=== PATIENT | female | born 1960 | race Caucasian/White ===

== ENCOUNTER 2019-08-06 14:19 | Inpatient (IN) | payer OTHER, MEDICAID ==
[~2019-08-06] VITALS: Ht 160 cm; Wt 84.5 kg
[2019-08-06 14:28] VITALS: BP 129/79
[2019-08-06] MEDS ORDERED: BUPROPION XL300 MG PO (14:34)
[2019-08-06] MEDS ORDERED: BACLOFEN 10MG T10 MG PO (14:34)
[2019-08-06] MEDS ORDERED: CARVEDILOL6.25 M1 PO (14:34)
[2019-08-06] MEDS ORDERED: LIPITOR80 MG PO (14:34)
[2019-08-06] MEDS ORDERED: AMIODARONE HCL400 MG PO (14:34)
[2019-08-06] MEDS ORDERED: FENTANYL1 EAC4 TRANSDERM (14:35)
[2019-08-06] MEDS ORDERED: DULOXETINE HCL20 MG PO (14:35)
[2019-08-06] MEDS ORDERED: FUROSEMIDE 20 M20 MG PO (14:35)
[2019-08-06] MEDS ORDERED: NEURONTIN300 MG PO (14:35)
[2019-08-06] MEDS ORDERED: LORAZEPAM 1 MG T1 MG PO (14:36)
[2019-08-06 15:10] LABS: ABSOLUTE BASOPHILS 0.1 thou/uL (0.0-0.2); ABSOLUTE EOSINOPHILS 0.1 thou/uL (0.0-0.7); ABSOLUTE LYMPHOCYTES 1.7 thou/uL (0.8-5.3); ABSOLUTE MONOCYTES 0.9 thou/uL (0.0-1.2); ABSOLUTE NEUTROPHILS 9.4 thou/uL (1.6-8.1); BASOPHILS 0.5 %; EOSINOPHILS 0.5 %; HEMATOCRIT 39.3 % (37.0-47.0); HEMOGLOBIN 13.2 gm/dL (12.0-15.0); LYMPHOCYTES 14.1 %; MCH 30.2 pg (26.0-34.0); MCHC 33.7 g/dL (28.0-37.0); MCV 89.8 fL (80.0-100.0); MONOCYTES 7.7 %; MPV 7.8 fl. (7.2-11.1); NUCLEATED RBCS 0 /100WBC; PLATELET COUNT* 277 thou/uL (150-400); POLYS 77.2 %; RBC 4.38 mil/uL (4.20-5.00); RDW-CV 14.2 % (10.5-14.5); WBC 12.2 thou/uL (4.0-11.0)
[2019-08-06 15:23] LABS: CALCIUM 8.8 mg/dL (8.5-10.1); POTASSIUM 3.9 mmol/L (3.5-5.1)
[2019-08-06 15:26] LABS: ACETAMINOPHEN < 2 ug/mL (10-30); ALCOHOL < 10 mg/dL (<10); SALICYLATE < 2.8 mg/dL (2.8-20.0)
[2019-08-06 15:27] LABS: ALBUMIN 2.7 g/dL (3.4-5.0); TOTAL BILIRUBIN 0.5 mg/dL (<0.1-1.0); TOTAL PROTEIN 8.1 g/dL (6.4-8.2)
[2019-08-06 15:57] LABS: URINE BILIRUBIN NEGATIVE (Negative); URINE BLOOD TRACE (Negative); URINE CLARITY SL CLOUDY; URINE COLOR YELLOW; URINE GLUCOSE-RANDOM NEGATIVE (Negative); URINE KETONES NEGATIVE (Negative); URINE LEUKOCYTES-REFLEX 1+ (Negative); URINE PROTEIN 1+ (Negative); URINE SPECIFIC GRAVITY 1.015 (1.005-1.030); URINE UROBILINOGEN 0.2 E.U./dl (0.2-1.0)
[2019-08-06 16:02] LABS: URINE NITRITE-REFLEX POSITIVE (Negative)
[2019-08-06 16:06] LABS: AMP/METHAMP Negative (Negative); BARBITURATES POSITIVE (Negative); BENZODIAZEPINES Negative (Negative); COCAINE Negative (Negative); METHADONE Negative (Negative); OPIATES POSITIVE (Negative); PCP Negative (Negative); THC Negative (Negative)
[2019-08-06 16:09] LABS: BACTERIA-REFLEX >30 Many /HPF (None Seen); CASTS None Seen /LPF (None Seen); CRYSTALS None Seen /LPF (None Seen); SQUAMOUS 0-3 Few /LPF (0-3); URINE RBC 0-2 Rare /HPF (0-2)
[2019-08-06 16:10] LABS: MUCUS 0-3 Light strn/LPF (None Seen); URINE WBC-REFLEX >25 Many /HPF (0-5)
--- NOTE | 2019-08-06 16:26 | NUR ---
PT HAS FENTNYL PATCH ON LEFT CHEST
[2019-08-06 21:04] VITALS: BP 109/55
--- NOTE | 2019-08-06 21:04 | NUR ---
REPORT GIVEN TO ROOM 223 PT TAKEN UP TO FLOOR ON FULL ROASTMASTER.
[2019-08-06 21:30] VITALS: BP 110/74
[2019-08-06] MEDS ORDERED: FLOMAX0.4 MG PO (21:36)
[2019-08-06] MEDS ORDERED: SUPER THERAVIT1 EACH PO (21:37)
[2019-08-06] MEDS ORDERED: B COMPLEX1 EACH PO (21:38)
[2019-08-06] MEDS ORDERED: TYLENOL325 MG PO (21:39)
[2019-08-06] MEDS ORDERED: BANOPHEN25 M1 PO (21:39)
[2019-08-06] MEDS ORDERED: BUTALBIT-ACETA1 EACH PO (21:40)
[2019-08-06] MEDS ORDERED: TUMS PO (21:41)
[2019-08-06] MEDS ORDERED: MILK OF MA400 MG/5 M PO (21:43)
[2019-08-06] MEDS ORDERED: SEROQUEL 25 MG25 MG PO (21:44)
[2019-08-06] MEDS ORDERED: PERCOCET 10-321 EAC1 PO (21:45)
[2019-08-06] MEDS ORDERED: MIRALAX119 GM PO (21:46)
[2019-08-06] MEDS ORDERED: SENNA PLUS TAB1 EACH PO (21:47)
[2019-08-06] MEDS ORDERED: OMEPRAZOLE 20 M20 M1 PO ×2 (21:53)
[2019-08-06] MEDS ORDERED: CYMBALTA30 MG PO (21:55)
[2019-08-06] MEDS ORDERED: ATIVAN1 M1 PO (21:58)
[2019-08-06] MEDS ORDERED: GABAPENTIN600 M1 PO (21:58)
[2019-08-06] MEDS ORDERED: KLOR-CON 10 ER10 MEQ PO (22:00)
[2019-08-07] VITALS: BP 128/73
[2019-08-07 04:00] VITALS: BP 107/59
--- NOTE | 2019-08-07 05:04 | NUR ---
RECEIVED REPORT AND ASSUMED CARE OF PATIENT FROM ER. PATIENT ALERT, ORIENTED TO SELF AND SITUATION. PATIENT'S SON STATES HER ORIENTATION STATUS VARIES FROM ORIENTED X4 TO CONFUSED, D/T PREVIOUS CVA. PATIENT C/O PAIN, PARTIALLY RELIEVED WITH PO MEDICATION AND RELAXATION TECHNIQUES. PATIENT REPOSITIONED Q2H TO MAINTAIN SKIN INTEGRITY. INCONTINENCE CHECKS AND ALESSANDRO CARE PROVIDED WITH REPOSITIONING. CALL LIGHT WITHIN REACH.
[2019-08-07 08:00] VITALS: BP 126/51
--- NOTE | 2019-08-07 13:00 | NUR ---
assumed pt care report received from nurse. pt is aox3 forgetful. left side paralysis due to stroke hx. left side is stiff. complains of pain in right shoulder. fentanyl patch applied. iv rocephin given. pt worked with physical therapy. pt was moved out of bed to chair with physical therapist help. pt was moved back in bed per nursing staff for bedpan used at lunch time. q2turn. skin intact. tracing sinus rythm on environmental monitoring technician. no accucheck. will continue to monitor pt
[2019-08-07 13:35] VITALS: BP 104/38
--- NOTE | 2019-08-07 14:32 | NUR ---
MET WITH PT TO DISCUSS HOME SITUATION/DC PLANNING. PT'S SPOUSE IN ROOM THIS AFTERNOON. PT IS LTC RESIDENT AT [facility], PLAN IS FOR HER TO RETURN THERE AT [place]. PT AND SPOUSE STATE SHE HAS BEEN IN FACILITY SINCE LAST NOV AFTER A CVA, WAS AT [facility] AND TRANSFERRED TO [facility] RECENTLY FOR LTC. CALLED AND UPDATED [facility], THEY WILL ACCEPT BACK AT [place]. FAXED UPDATE. WILL FOLLOW
[2019-08-07 16:03] VITALS: BP 96/42
--- NOTE | 2019-08-07 16:52 | EKG ---
[place] [address] ELECTROCARDIOGRAM REPORT Name: ADIEL MULLEN Room: [address] ADM IN .R.#: [id number] Admission: 08/06/19 Attend Phys: Yannick Darby Discharge: Date of : 60 Report #: [id number] THIS REPORT FOR: //name// [facility] ED Test Date: 2019-08-06 Test Time: 15:36:57 Pat Name: ADIEL SHANTASANJUANATAMMIE Department: Room: [facility] Gender: F Mainframe Architect: SAVANA : 1960 Requested By: Espinoza Grant Order Number: [id number] MD: Jose Case Measurements Intervals [place] Rate: 81 P: 22 MA: 158 QRS: 24 QRSD: 100 T: -44 QT: 470 QTc: 546 Interpretive Statements Sinus rhythm Borderline repolarization abnormality Prolonged QT interval Baseline wander in lead(s) I,II,aVR,aVL,aVF,V1,V2,V3,V4,V6 No previous ECG available for comparison Electronically Signed On 08-07-2019 16:52:46 CDT by Jose Case [email or web address] <ELECTRONICALLY SIGNED> By: Jose Case MD, FACC 08/07/19 1652 1536 [id number] Jose Case MD, FAC /EPI
[2019-08-07 20:00] VITALS: BP 113/54
[2019-08-08] VITALS: BP 100/56
[2019-08-08 04:40] LABS: HEMATOCRIT 32.5 % (37.0-47.0); MCH 29.9 pg (26.0-34.0); MCV 90.5 fL (80.0-100.0); MPV 7.9 fl. (7.2-11.1); RBC 3.59 mil/uL (4.20-5.00); RDW-CV 14.5 % (10.5-14.5); WBC 7.2 thou/uL (4.0-11.0)
[2019-08-08 04:53] LABS: HEMOGLOBIN 10.7 gm/dL (12.0-15.0)
[2019-08-08 04:55] LABS: CALCIUM 8.7 mg/dL (8.5-10.1); CREATININE 0.8 mg/dL (0.6-1.3); MAGNESIUM 1.8 mg/dL (1.8-2.4); POTASSIUM 3.1 mmol/L (3.5-5.1); TOTAL BILIRUBIN 0.2 mg/dL (<0.1-1.0); TOTAL PROTEIN 6.3 g/dL (6.4-8.2)
--- NOTE | 2019-08-08 05:27 | NUR ---
PT A&O X4, C/O PAIN AT START OF SHIFT, TREATED WITH PRN MEDICATION. TOLERABLE PAIN LEVEL MAINTAINED REST OF SHIFT ALLOWING FOR SLEEP FOR PT. ALL CURRENT NEEDS HAVE BEEN MET, PT ASLEEP IN BED WITH CALL LIGHT WITHIN REACH.
--- NOTE | 2019-08-08 07:56 | CON ---
[address] [address] CONSULTATION Name: ADIEL MULLEN Room: [address] IN .R.#: [id number] Admission: 08/06/19 Attend Phys: Yannick Darby Discharge: Date of : 60 Report #: [id number] THIS REPORT FOR: //name// CC: Wen Elam DATE OF SERVICE: 08/07/2019 INFECTIOUS DISEASE CONSULTATION ATTENDING PHYSICIAN: Dr. Elam. REASON FOR EVALUATION: Complicated urinary tract infection. HISTORY OF PRESENT ILLNESS: Chart reviewed, the patient examined. This is a 58-year-old woman with previous history of stroke, left-sided hemiparesis who is disabled, resides in a facility, apparently has recurrent history of urinary tract infections. She presented today with an encephalopathy, reports of hallucinations. Evaluation noted marked pyuria and felt to have a urinary tract infection. She was empirically placed on ceftriaxone. At this point, she is more lucid, admits some pain in particular on that right-sided discomfort. Chest x-ray was otherwise unrevealing as well. ALLERGIES: ERYTHROMYCIN, TRAMADOL. ETOMIDATE. CURRENT MEDICATIONS: Include duloxetine, fentanyl, carvedilol, bupropion, amiodarone, ceftriaxone, atorvastatin, tamsulosin, quetiapine, baclofen. PAST MEDICAL HISTORY: As described above, previous stroke with left-sided hemiparesis, history of DVT with embolism, osteoarthritis, hypertension, hyperlipidemia, depression, anxiety, reflux, insomnia, frequent UTIs. SOCIAL HISTORY: Former smoker. No ethanol, no illicit drug use. FAMILY HISTORY: Noncontributory. REVIEW OF SYSTEMS: Denies any significant pulmonary-related complaints. Had some anorexia. PHYSICAL EXAMINATION: GENERAL: Appears somewhat chronically ill, undernourished. She is alert, cooperative, pleasant, seems to be tracking well. VITAL SIGNS: Temperature 98.9, pulse 64, respirations 14, blood pressure 104/38. SKIN: Warm, dry, no rashes. HEENT: Extra[place] [address] CONSULTATION Name: ADIEL MULLEN Room: [address]#: [id number] Admission: 08/06/19 Attend Phys: Yannick Darby Discharge: Date of : 60 Report #: [id number] NECK: Supple. LUNGS: Diminished breath sounds. HEART: Regular. I do not appreciate any murmur. ABDOMEN: Mildly tender in the right side, no overt peritoneal signs. GENITOURINARY AND RECTAL: Deferred. LABORATORY DATA: Initial CBC: White count 12.2, H and H 13.2 and 39.3, platelets of 277. Electrolytes: Sodium 139, potassium 3.9, chloride 101, bicarbonate is 31, anion gap of 7, BUN and creatinine 11 and 1.0, glucose of 99. LFTs unremarkable. Albumin of 2.7, total protein of 8.1, estimated GFR of 57. Urinalysis; greater than 25 white cells, greater than 30 bacteria. Chest x-ray, no acute process. ASSESSMENT AND PLAN: Complicated urinary tract infection, appears to be recurrent or relapsing in character. Does have repeat urine pending. We will adjust therapy to include more resistant negatives. Await results. Monitor expectantly. <ELECTRONICALLY SIGNED> By: Dionisio Peralta MD 08/08/19 0756 1536 [id number] Peralta MD /nt
[2019-08-08 08:00] VITALS: BP 119/59
--- NOTE | 2019-08-08 13:54 | NUR ---
CONTINUE TO FOLLOW, IF PT ABLE TO DC OVER WEEKEND, SHE WILL RETURN TO [facility] AT [facility]. WILL NEED TO CALL AND ARRANGE FOR TRANSFER. WILL ALSO NEED TO ARRANGE FOR W/C VAN TRANSPORT. [facility] [phone] FAX [phone] [facility] [phone] THEODORA MULLEN [phone]
[2019-08-08 15:40] VITALS: BP 98/60
[2019-08-08 20:30] VITALS: BP 108/69
--- NOTE | 2019-08-08 20:38 | NUR ---
PT VSS, A&OX4- BUT SOMETIMES LESS, PT IS FORGETFUL, NSR ON TELE, PT IS FLACCID ON LEFT SIDE AND NEEDS LIFTING DEVICE TO MOVE. HIGH FALL RISK. HOURLY ROUNDING PERFORMED, POSSESSIONS AND CALL LIGHT WITHIN REACH. PT INCONTINENT OF BOWEL AND BLADDER, BUT SOMETIMES REQUESTS A BEDPAN.
[2019-08-09 00:38] VITALS: BP 133/72
[2019-08-09 04:26] VITALS: BP 117/69
--- NOTE | 2019-08-09 05:33 | NUR ---
A&O X4. VITALS STABLE RA. MEDS GIVEN ORDERED. PAIN MANAGED WITH IV MORPHINE AND PERCOCET. HOURLY ROUNDING, Q2 TURN COMPLETED. WILL CONTINUE TO MONITOR.
[2019-08-09 08:00] VITALS: BP 141/78
[2019-08-09 14:33] VITALS: BP 123/68
[2019-08-09 17:35] VITALS: BP 135/59
--- NOTE | 2019-08-09 18:47 | NUR ---
PT VSS, SB ON TELE, A&OX4, REPORTS SEVERE PAIN, MAX ASSIST WITH LIFT. LEFT SIDE FLACCID FROM STROKE. Q2T, HOURLY ROUNDING PERFORMED, POSSESSIONS AND CALL LIGHT WITHIN REACH. POSSIBLE DISCHARGE 08/09/19
[2019-08-09 20:00] VITALS: BP 150/66
[2019-08-10] VITALS: BP 165/70
[2019-08-10 04:00] VITALS: BP 146/81
[2019-08-10 08:00] VITALS: BP 152/91
[2019-08-10 12:01] LABS: ABSOLUTE EOSINOPHILS 0.2 thou/uL (0.0-0.7); ABSOLUTE LYMPHOCYTES 1.2 thou/uL (0.8-5.3); ABSOLUTE MONOCYTES 0.6 thou/uL (0.0-1.2); ABSOLUTE NEUTROPHILS 5.4 thou/uL (1.6-8.1); BASOPHILS 0.6 %; EOSINOPHILS 2.6 %; HEMATOCRIT 35.7 % (37.0-47.0); LYMPHOCYTES 15.7 %; MCH 29.7 pg (26.0-34.0); MCHC 33.6 g/dL (28.0-37.0); MCV 88.6 fL (80.0-100.0); MONOCYTES 7.6 %; MPV 7.3 fl. (7.2-11.1); NUCLEATED RBCS 0 /100WBC; POLYS 73.5 %; RBC 4.03 mil/uL (4.20-5.00); RDW-CV 14.3 % (10.5-14.5); WBC 7.4 thou/uL (4.0-11.0)
[2019-08-10 12:02] LABS: PLATELET COUNT* 323 thou/uL (150-400)
[2019-08-10 12:09] LABS: ALBUMIN 2.2 g/dL (3.4-5.0); CALCIUM 9.1 mg/dL (8.5-10.1); CREATININE 0.8 mg/dL (0.6-1.3); POTASSIUM 3.3 mmol/L (3.5-5.1); TOTAL BILIRUBIN 0.2 mg/dL (<0.1-1.0); TOTAL PROTEIN 7.2 g/dL (6.4-8.2)
[2019-08-10 14:00] VITALS: BP 141/68
[2019-08-10 15:32] VITALS: BP 151/67
--- NOTE | 2019-08-10 19:20 | NUR ---
ASSUMED PT CARE AT 0730. ASSESSMENT COMPLETED CHARTED. ABLE TO MAKE NEEDS KNOWN. C/O CHRONIC SHOULDER PAIN AND ABDOMINAL PAIN. 1X PROJECTILE VOMITING TODAY AFTER EATING AND GIVING PILLS. NEW ORDERS GIVEN. GAVE PRN MEDICATION PER EMAR. [id number] COMPLETED CHARTED. RESTING IN BED AT THIS TIME. WILL CONTINUE TO MONITOR.
[2019-08-10 20:00] VITALS: BP 113/50
[2019-08-11] VITALS (7 sets, daily range): BP systolic 98–131; BP diastolic 45–74
--- NOTE | 2019-08-11 06:50 | NUR ---
PT CONFUSION AND COOPERATION APPEARS TO COINCIDE WITH ADMINISTRATION OF IV PAIN MEDICATION. PT COOPERATION INCREASES WITH IT DOES CONFUSION. MEDS GIVEN PER EMAR. PT PROGRESSING TOWARDS GOAL.
--- NOTE | 2019-08-11 09:14 | NUR ---
ASSUMED CARE OF PT THIS AM AROUND 0715- MOTORCYCLE SERVICE TECHNICIAN IN PLACE ORDERED, TRACING SB- UPON ASSESSMENT PT NOTED TO BE RESTING IN BED- PT A&O X3-4 WITH NOTED FORGETFULLNESS- INCONTINENT OF BOWEL AND BLADDER, PURWICK IN PLACE INDICATED-BED REST IN PLACE WITH Q2 HOUR TURNS INDICATED- LCTA, RESP EVEN AND UN-LABORED- VSS, O2 SAT 94% ON RA- ABD SOFT/ROUND/NON-TENDER, BS X4 QUADS- LAST BM REPORTED 08/10/19- IV NOTED TO RIGHT AC INTACT AND SL- IV ROCEPHIN D/C'D THIS AM PER ID WITH PO CEFDINIR 300MG BID STARTED WITH 1ST DOSE GIVEN THIS AM- GOOD PO INTAKE NOTED THIS AM WITH BREAKFAST-1+ PITTING EDEMA NOTED, LEGS ELEVATED ON PILLOW- LEFT SIDED NOTED TO BE FLACID R/T HX OF CVA- PT RATES PAIN 8/10 TO SHOULDER AND ABD THIS AM, PRN PAIN MEDICATIONS INDICATED- CALL LIGHT AND PERSONAL BELONGINGS WITH IN REACH- HOURLY ROUNDS IN PLACE R/T SAFETY/NEEDS- ALL NEEDS MET AT THIS TIME-WCTM
--- NOTE | 2019-08-11 15:26 | NUR ---
Spoke with , anticipate dc tomorrow back to [facility]
[2019-08-12] VITALS: BP 131/89
[2019-08-12 04:00] VITALS: BP 134/62
[2019-08-12 04:23] LABS: HEMATOCRIT 35.9 % (37.0-47.0); HEMOGLOBIN 11.8 gm/dL (12.0-15.0); MCH 29.4 pg (26.0-34.0); MCHC 32.8 g/dL (28.0-37.0); MCV 89.7 fL (80.0-100.0); MPV 7.1 fl. (7.2-11.1); RBC 4.01 mil/uL (4.20-5.00); RDW-CV 14.4 % (10.5-14.5); WBC 8.1 thou/uL (4.0-11.0)
[2019-08-12 05:06] LABS: CALCIUM 8.8 mg/dL (8.5-10.1); CREATININE 0.7 mg/dL (0.6-1.3); POTASSIUM 3.7 mmol/L (3.5-5.1)
[2019-08-12 07:55] VITALS: BP 130/47
--- NOTE | 2019-08-12 09:00 | NUR ---
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, TRACING SB- UPON ASSESSMENT PT NOTED TO BE RESTING IN BED- PT A&O X3-4 WITH NOTED FORGETFULLNESS- INCONTINENT OF B/B, PURWIC NOTED IN PLACE INDICATED- BED REST IN PLACE WITH Q2 HOUR TURNS INDICATED- LCTA/DIMINISHED IN BASES, RESP EVEN AND UN-LABORED- VSS, O2 SAT 94% ON RA- ABD SOFT/OBESE/NON-TENDER, BS X4 QUADS- BM REPORTED THIS AM-GOOD PO INTAKE NOTED THIS AM WITH BREAKFAST, NO NAUSEA NOTED- IV NOTED TO RIGHT AC INTACT AND SL-LEFT SIDE NOTED TO BE FLACID R/T OLD STROKE- +1 BLE EDEMA NOTED, LEGS ELEVATED INDICATED- PT RATES PAIN 8/10 TO RIGHT SHOULDER AND ABD, PRN PERCOCET GIVEN THIS AM AT 0828- CALL LIGHT AND PERSONAL BELONGINGS WITH IN REACH- HOURLY ROUNDS IN PLACE R/T SAFETY/NEEDS- ALL NEEDS MET AT THIS TIME-WCTM
--- NOTE | 2019-08-12 10:19 | NUR ---
RECEIVED REPORT AND ASSUMED CARE AT 1900. VSS. CARDIAC MONITORING IN PLACE. PT REPORTS PAIN, PRN MEDICATION PER ORDERS.ASSESSMENT COMPLETED CHARTED. NO ACUTE CHANGES THROUGH THE NIGHT. HOURLY ROUNDING COMPLETED AND ALL NEEDS MET
--- NOTE | 2019-08-12 11:09 | NUR ---
ORDERS NOTED FOR DC BACK TO LTC AT [facility]. SPOKE WITH [facility], THEY WILL ACCEPT BACK AND SHE SET UP W/C VAN FOR 2PM. CHART COPIED. ORDERS FAXED TO [facility]. RN HAS NUMBER TO CALL REPORT. PT AWARE AND CALL TO SPOUSE TO UPDATE, IN AGREEMENT.
[2019-08-12] MEDS ORDERED: LORAZEPAM 1 MG T1 MG PO (11:21)
[2019-08-12] MEDS ORDERED: FENTANYL1 EAC4 TRANSDERM (11:21)
[2019-08-12] MEDS ORDERED: WELLBUTRIN XL150 MG PO (11:21)
[2019-08-12] MEDS ORDERED: CIPRO500 MG PO (11:21)
[2019-08-12] MEDS ORDERED: PERCOCET 10-321 EAC1 PO (11:21)
[2019-08-12 11:30] VITALS: BP 111/48
--- NOTE | 2019-08-12 12:26 | NUR ---
RECOMMEND PT RECEIVE SKILLED ST SERVICES AT [facility] UPON DISCHARGE TO IMPROVE COGNITIVE SKILLS FOR SAFETY AND QUALITY OF LIFE.
== END 2019-08-12 14:45 | DRG 70 ==
LOC: M.ERS 14:19 → M.TBA-ER 16:18 → M.2W 16:18
PROVIDERS: Family Medicine; Internal Medicine; ADMIT Internal Medicine
DX: G93.41 Metabolic encephalopathy (principal); E43 Unspecified severe protein-calorie malnutrition; R65.11 Systemic inflammatory response syndrome (SIRS) of non-infectious origin with acute organ dysfunction; N39.0 Urinary tract infection, site not specified; E27.40 Unspecified adrenocortical insufficiency; I69.354 Hemiplegia and hemiparesis following cerebral infarction affecting left non-dominant side; K21.9 Gastro-esophageal reflux disease without esophagitis; F41.9 Anxiety disorder, unspecified; G47.00 Insomnia, unspecified; M19.90 Unspecified osteoarthritis, unspecified site; F32.9 Major depressive disorder, single episode, unspecified; E78.5 Hyperlipidemia, unspecified; I48.91 Unspecified atrial fibrillation; Z68.33 Body mass index [BMI] 33.0-33.9, adult; Z88.1 Allergy status to other antibiotic agents; Z88.8 Allergy status to other drugs, medicaments and biological substances; Z86.718 Personal history of other venous thrombosis and embolism; Z82.49 Family history of ischemic heart disease and other diseases of the circulatory system; Z79.899 Other long term (current) drug therapy; Z23 Encounter for immunization